=== PATIENT | male | born 1995 | race Caucasian/White ===

== ENCOUNTER 2019-04-12 20:10 | Emergency (ER) | payer SELFPAY ==
[~2019-04-12] VITALS: Ht 167.6 cm; Wt 82.1 kg
[2019-04-12 20:29] VITALS: BP 121/79; Ht 167.6 cm; Wt 82.1 kg
== END 2019-04-12 21:53 | disposition left against medical advice (07) ==
LOC: ED 20:10
DX: S09.8XXA Other specified injuries of head, initial encounter (principal); W22.8XXA Striking against or struck by other objects, initial encounter; Y93.89 Activity, other specified; Y92.89 Other specified places as the place of occurrence of the external cause; Y99.8 Other external cause status